=== PATIENT | female | born 1970 | race African-American/Black ===

== ENCOUNTER 2023-12-16 09:22 | Outpatient (CLI) | payer BC, SELFPAY ==
--- NOTE | ~2023-12-16 | MR_ITS ---
EXAMINATION: MR foot RT wo con DATE: 12/16/2023 09:58 INDICATION: Right foot pain TECHNIQUE: Magnetic resonance imaging (MRI) of the right fore/mid foot was performed without intraven ous contrast. Sequences included sagittal T1-weighted FSE, sagittal fluid sensitive FSE STIR, coronal PD-weighted FS FSE, coronal T1-weighted FSE, axial PD-weighted FS FSE, and axial PD-weighted FSE. COMPARISON: None FINDINGS: Postoperative changes of prior realignment osteotomy at the neck of the first metatarsal and base of the first proximal phalanx, both with metallic magnetic field artifact associated with associated int ernal fixation. The collateral ligament complex at the first metatarsophalangeal joint appear thicken ed but intact likely degeneration scarring as sequela of of chronic hallux valgus and subsequent surg cata. There is mild osteoarthritis at the first metatarsophalangeal joint. There is dorsal dislocation of the second metatarsophalangeal joint with the base of the proximal pha lanx having possibly migrated along the dorsal margin of the head of the second metatarsal. There is complete tear of the plantar plate and lateral collateral ligament complex. The torn and partially re tracted portion the plantar plate along with the flexor tendons to the second toe are retracted media lly across the head of the second metatarsal. There is feathery muscular edema in the interosseous an d lumbrical muscles along the medial and lateral margins of the distal second metatarsal. The collateral ligament complex at the third-fifth metatarsophalangeal and at the interphalangeal nika nts are normal. No fracture. There is moderate osteoarthritis with subarticular cystlike and edema-li ke signal changes at the third tarsal metatarsal joint as well as at the articulation between the bas e of the third and fourth metatarsals. Lisfranc ligament complex is normal. No fractures or pathologi c marrow replacing process. IMPRESSION: 1. Tear of the plantar plate and lateral collateral ligament complex at the second metatarsophalangea l joint with dorsal dislocation and slight proximal migration of the second proximal phalanx relative to the head of the second metatarsal. 2. Postoperative change of prior hallux valgus correction. 3. 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 Reviewed, dictated and finalized at location A. IMPRESSION: 1. Tear of the plantar plate and lateral collateral ligament complex at the sec ond metatarsophalangeal joint with dorsal dislocation and slight proximal migra tion of the second proximal phalanx relative to the head of the second metatars al. 2. Postoperative change of prior hallux valgus correction. 3. Moderate midfoot osteoarthritis at the third tarsometatarsal and third-fourt h intermetatarsal articulations.
== END 2023-12-16 09:23 ==
LOC: MICIMG 09:26
PROVIDERS: PCP Nurse Practitioner Family
DX: M19.071 Primary osteoarthritis, right ankle and foot (principal); S83.421A Sprain of lateral collateral ligament of right knee, initial encounter; X58.XXXA Exposure to other specified factors, initial encounter; Z98.890 Other specified postprocedural states
CPT/HCPCS: 73718